=== PATIENT | female | born 1995 | race Caucasian/White ===

== ENCOUNTER 2020-05-20 11:02 | Emergency (ER) | payer OTHER ==
[~2020-05-20] VITALS: Ht 165.1 cm; Wt 70.8 kg
[2020-05-20 11:13] VITALS: BP_SYST 105
--- NOTE | 2020-05-20 11:42 | NUR ---
Patient to ER bed 03 to gown for evaluation. Side rails up.
--- NOTE | 2020-05-20 11:45 | NUR ---
Pt walked in to ER with c/o pain to left foot, reports a chair was dropped on it. Pain 3/, denies any other trauma at this time. V/S stable, pt is afebrile. Currently resting in bed, will continue to monitor.
--- NOTE | 2020-05-20 11:50 | NUR ---
ER Dr. Ramey at bedside examining patient.
--- NOTE | 2020-05-20 12:20 | NUR ---
Patient given written and verbal discharge instructions and verbalizes understanding. ER MD discussed with patient the results and treatment provided. Patient in stable condition. ID arm band removed. No prescriptions given. Patient educated on pain management and to follow up with PMD. Pain Scale 3. Opportunity for questions provided and answered. Medication side effect fact sheet provided.
[2020-05-20 12:23] VITALS: BP_SYST 105
== END 2020-05-20 12:20 | disposition home or self-care (01) ==
LOC: SED 11:02
DX: S90.32XA Contusion of left foot, initial encounter (principal); W07.XXXA Fall from chair, initial encounter; Y93.89 Activity, other specified; Y92.89 Other specified places as the place of occurrence of the external cause; Y99.8 Other external cause status
CPT/HCPCS: 99283